=== PATIENT | male | born 1955 | race Caucasian/White ===

== ENCOUNTER → 2020-06-30 13:54 | Outpatient (CLI) | payer OTHER, SELFPAY ==
--- NOTE | ~2020-06-30 | CT_ITS ---
EXAMINATION: CT brain wo/w con EXAM DATE: 06/30/2020 14:38 INDICATION: Unspecified disorder of eye and adnexa, vascular abnormalities of left eye conjunctiva. TECHNIQUE: Spiral CT of the head was performed without contrast. Axial, coronal and sagittal images were reviewed. Patient was then injected with 100 cc Omnipaque 350 intravenous contrast and reimaged. Postcontrast axial, coronal, sagittal reformatted images reviewed. The dose-length product (DLP) f or this examination was 1199.14 mGy-cm. The exposure was tailored according to patient size, and ite rative reconstruction (ASIR) was used as additional dose reduction technique. There is no prior stud y for comparison. FINDINGS: The orbits are unremarkable, the retrobulbar fat is clear. 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 Given multicystic appearance can't exclude carcinoma. There is no acute intraparenchymal hemorrhage. No evidence of intraparenchymal brain mass lesion. N o evidence of acute infarction. There is no mass effect or midline shift. The ventricles are normal in size. There are no extra-axial collections. There are no acute calvarial fractures. The visua lized sinuses and mastoid air cells are well aerated. There are no areas of abnormal enhancement on the postcontrast images. IMPRESSION: 1. 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 Consider follow-up ENT consult. 2. Unremarkable orbits and brain. Reviewed, dictated and finalized at location B. UCT DEVELOPMENT COORDINATOR IMPRESSION: 1. 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 Consider follow-up ENT consult. 2. Unremarkable orbits and brain.
[2020-06-30 14:22] LABS: Estimated Glomerular Filt Rate > 60
== END ==
PROVIDERS: PCP Family Medicine; Visit Provider Specialist
DX: H11.412 Vascular abnormalities of conjunctiva, left eye (principal); H57.9 Unspecified disorder of eye and adnexa
CPT/HCPCS: 70470; Q9967

== ENCOUNTER 2020-09-19 07:44 | Outpatient (CLI) | payer OTHER, SELFPAY ==
--- NOTE | 2020-09-19 08:00 | ECG_ITS ---
Measurements Intervals [place] Rate: 49 P: 78 RI: 146 QRS: 52 QRSD: 100 T: 69 QT: 431 QTc: 391 Interpretive Statements SINUS BRADYCARDIA POSSIBLE LEFT ATRIAL ENLARGEMENT BORDERLINE R WAVE PROGRESSION, ANTERIOR LEADS BORDERLINE ST-T WAVE ABNORMALITY- I, II, AVR, V3-V4 ABNORMAL ECG Electronically Signed On 09-19-2020 8:13:28 CDT by Rafa Domínguez D.O.
== END 2020-09-19 07:45 | disposition home or self-care (01) ==
LOC: ANHSURGERY 07:47
PROVIDERS: PCP Family Medicine; Visit Provider Otolaryngology
DX: Z01.810 Encounter for preprocedural cardiovascular examination (principal); F17.200 Nicotine dependence, unspecified, uncomplicated; R94.31 Abnormal electrocardiogram [ECG] [EKG]
CPT/HCPCS: 93005

== ENCOUNTER → 2020-09-20 05:31 | Outpatient (CLI) | payer OTHER, SELFPAY ==
[2020-09-20 19:34] LABS: SARS-CoV-2 RNA PCR Negative
== END ==
PROVIDERS: PCP Family Medicine; Visit Provider Otolaryngology
DX: Z01.812 Encounter for preprocedural laboratory examination (principal); Z20.822 Contact with and (suspected) exposure to COVID-19
CPT/HCPCS: C9803; U0003; U0005

== ENCOUNTER 2020-09-23 00:55 | Day surgery (SDC) | payer OTHER, SELFPAY ==
[2020-09-09 11:54] VITALS: BMI 24.0
--- NOTE | 2020-09-22 06:58 | PM.HPGS ---
History of Present Illness History of Present Illness Consent: Risks, benefits, and alternatives have been discussed and questions answered. Patient agrees to proceed with procedure. Chief complaint: cyst of nasopharynx Narrative: Marshall Wells is a 65 year old mal with a 1.2 cm cyst in the nasopharynx that on x-rays consider Review of Systems Review of Systems: All systems reviewed & are unremarkable except as noted in HPI and below PMFSH Family History Family History (Updated 08/28/20 @ 08:28 by Lary De La Rosa) Father Diabetes mellitus Mother Cancer Sibling Thyroiditis Social History Social History Smoking packs per day: 1 Smoking cigarettes per day: 20.0 Years smoked: 40 Smoking pack-years: 40.00 Smoking status: Current every day smoker Tobacco type: cigarettes Alcohol intake: never Substance use: never Substance use type: does not use Spiritual care concerns: No Meds Home Medications and Allergies Home Medications Medication Instructions Recorded Confirmed Type gwnoaxmq-ajc-mpsjj acid 0.4 1 tablet PO DAILY 08/28/20 09/09/20 History mg-lycopene 300 mcg-lutein 250 mcg tablet Allergies Allergy/AdvReac Type Severity Reaction Status Date / Time aspirin Allergy Severe Difficulty Verified 09/09/20 11:54 Breathing propoxyphene [From Darvon] Allergy Severe Difficulty Verified 09/09/20 11:54 Breathing Exam Narrative: Exam Narrative: chest clear heart without murmurs abdomen soft extremities negative 1.2 cm cyst in the nasophary Assessment and Plan Additional Plan plan is a biopsy of the cyst in the nasopharynx
--- NOTE | 2020-09-23 06:22 | WPDHPUPDATE1 ---
History and Physical Update Update Date/Time: 09/23/20 06:22 History and Physical has been reviewed, including an updated exam of the patient. There are NO changes in the patient's condition. Risks, benefits, and alternatives have been discussed and questions answered. Patient agrees to proceed with procedure.
[2020-09-23] MEDS: LACTATED RINGERS 1,000 ML 30 ML IV CONT ×2 (06:55→08:18)
[2020-09-23 07:05] VITALS: BP 128/62; PULSE 56; RESP 20; TEMP 36.6; O2SAT 99
--- NOTE | 2020-09-23 07:34 | WPDANESEPPF ---
Anes - Initial Pre Proc Eval Procedure: Operation Date: 09/23/20 08:45 Proposed Procedures p Biopsy Cyst of Nasopharynx - Antwon Fernandez MD Date/Time: 09/23/20 07:34 Surgeon: Antwon Fernandez MD Pre Op Diagnosis: cyst of nasopharynx Patient Data Age: 65 Gender: M Height: 5 ft 10 in Weight: 76 kg Last Vital Signs Temp 97.8 F 09/23/20 07:05 Pulse 56 L 09/23/20 07:05 Resp 20 09/23/20 07:05 BP 128/62 09/23/20 07:05 Pulse Ox 99 09/23/20 07:05 Allergies Allergy/AdvReac Type Severity Reaction Status Date / Time aspirin Allergy Severe Difficulty Verified 09/23/20 07:04 Breathing propoxyphene [From Darvon] Allergy Severe Difficulty Verified 09/23/20 07:04 Breathing Home Medications Medication Instructions Recorded Confirmed Type ugfrgfji-nxi-rdxuf acid 0.4 1 tablet PO DAILY 08/28/20 09/23/20 History mg-lycopene 300 mcg-lutein 250 mcg tablet Patient hx anesthesia problems: none Family hx anesthesia problems: none PMFSH Past Medical History Medical History (Updated 09/23/20 @ 07:31 by Fer Nina MD) Graves disease H/O malignant neoplasm of rectum Family History Family History (Updated 08/28/20 @ 08:28 by Lary De La Rosa) Father Diabetes mellitus Mother Cancer Sibling Thyroiditis Social History Social History Smoking packs per day: 1 Smoking cigarettes per day: 20.0 Years smoked: 40 Smoking pack-years: 40.00 Smoking status: Current every day smoker Tobacco type: cigarettes Alcohol intake: never Substance use: never Substance use type: does not use Living arrangements: with family Spiritual care concerns: No Anes - Eval Final PreProcedure Day of Procedure 09/23/20 07:34 Patient weight: normal Heart: regular rate and rhythm Lungs: clear to auscultation Airway: Mallampati scale class II Neurological: alert and oriented Last oral intake: >/= 8 hours ASA classification: III Emergent: no Anesthetic plan: proceed Anesthesia type and monitoring: general ETT and standard monitoring Informed Consent: The patient's anesthetic plan and its attendant risks and benefits were discussed with the patient/family/POA. Questions were solicited and answers provided to the satisfaction of the patient/family/POA.
[2020-09-23] MEDS: OXYMETAZOLINE HCL 0.05% NAS 15 ML BTL (*BKC) 1 SPRAY NASAL (08:01)
--- NOTE | 2020-09-23 08:08 | PM.PROC ---
Procedure Note - Detailed Date of procedure: 09/23/20 Pre-op diagnosis: cyst of nasopharynx Post-op diagnosis: same Procedure performed: Biopsy multiple areas of nasopharynx Description of procedure: Patient was prepped and draped fashion general anesthesia with the tonsil set up there nasopharynx was inspected palpated some soft areas were multiple we biopsied left and Center Anesthesia: GLMA Surgeon: Antwon Fernandez MD Estimated blood loss (mL): 10 Drains: No Packing: No Pathology: none sent Complications: No immediate complications Condition: stable Disposition: PACU Findings: Cyst nasopharynx
[2020-09-23 08:10] VITALS: BP 163/74; PULSE 62; RESP 18; TEMP 36.4; O2SAT 100
[2020-09-23 08:30] VITALS: BP 147/69; PULSE 53; RESP 16; O2SAT 100
[2020-09-23 08:45] VITALS: BP 143/71; PULSE 51; RESP 14; O2SAT 99
[2020-09-23 08:48] VITALS: BP 151/72; PULSE 47; RESP 14
[2020-09-23 09:15] VITALS: BP 155/67; PULSE 50; RESP 14
== END 2020-09-23 09:27 | disposition home or self-care (01) ==
PROVIDERS: PCP Family Medicine; Visit Provider Otolaryngology
PROC: (CPT 42804; principal; 2020-09-23 08:45)
DX: J39.2 Other diseases of pharynx (principal); F17.210 Nicotine dependence, cigarettes, uncomplicated
CPT/HCPCS: 42804; 88305; 93005; A9270; C9803; J0330; J1100; J2250; J2405; J2704; J7120; U0003; U0005

== ENCOUNTER 2024-03-26 16:11 | Emergency (ER) | payer OTHER, MEDICARE, SELFPAY ==
[2024-03-26] VITALS (9 sets, daily range): BP systolic 102–168; BP diastolic 58–86; PULSE 59–68; RESP 12–19; TEMP 36.3–36.6; O2SAT 99–100
--- NOTE | ~2024-03-26 | XR_ITS ---
CHEST RADIOGRAPH, PA AND LATERAL CLINICAL HISTORY: near syncope . COMPARISON: None available TECHNIQUE: PA and lateral views of the chest. FINDINGS The left mid to upper lung is partially obscured due to pacemaker generator. Wires project over the right atrium and right ventricle. The remainder of the cardiomediastinal silhouette is otherwise unremarkable. Panlobular emphysematous change. The lungs are otherwise clear. Visualized osseous structures and soft tissues are unremarkable. IMPRESSION: Panlobular emphysematous change, without focal infiltrate or effusion. Reviewed, dictated and finalized at location A.
--- NOTE | ~2024-03-26 | CT_ITS ---
EXAMINATION: CT brain wo con DATE: 03/26/2024 16:45 INDICATION: Near syncope. TECHNIQUE: Computed tomography (CT) of the head was performed without intravenous contrast. The mA wa s adjusted according to patient size. Iterative reconstruction technique was employed. The dose-lengt h product was 605.33 mGy-cm. COMPARISON: Head CT 06/30/2020 FINDINGS: There is no intracranial hemorrhage, acute infarction, or abnormal intracranial mass lesion . There is a small old infarct in the left parietal deep white matter. The ventricles are normal in s ize. The paranasal sinuses are clear. There is a trace left mastoid effusion. IMPRESSION: 1. 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 Reviewed, dictated and finalized at location A.
--- NOTE | 2024-03-26 16:17 | ED.DIZZY ---
HPI - Dizziness General Chief Complaint: Dizziness <RATNA Jaramillo Last Filed: 03/26/24 19:07> Stated Complaint: lightheaded, shaky <RATNA Jaramillo Last Filed: 03/26/24 19:07> Time Seen by Provider: 03/26/24 16:12 <RATNA Jaramillo Last Filed: 03/26/24 19:07> Focused HPI: Patient is a 68 y/o male, with PMH of pacemaker, who presents to the ED with c/o lightheadedness. Patient reports he was driving home from work today when he began feeling lightheaded, shaky, began having blurred vision. Denies LOC. He also began to have some indigestion, which prompted him to come to the ED. He does feel improved currently. He states these sx's felt similar to what he experienced before receiving his pacemaker. Patient sees Dr. Shi with Cardiology in [facility]. Denies SOB. He is a smoker. Denies diaphoresis, nausea, recent cough or cold sx's. GENERAL: Appears older than stated age, well-nourished, and in no acute distress. HEAD: Normocephalic, atraumatic. CHEST: Clear to auscultation. ?No respiratory distress. HEART: Regular rate and rhythm.? NEURO: ?Alert and oriented x3. Patient screened in triage and initial orders placed.? ?Additional care and disposition to be based upon?diagnostic testing and treatment. <RATNA Jaramillo Last Filed: 03/26/24 19:07> Source: patient <RATNA Jaramillo Last Filed: 03/26/24 19:07> Mode of arrival: ambulatory <RATNA Jaramillo Last Filed: 03/26/24 19:07> Limitations: no limitations <RATNA Jaramillo Last Filed: 03/26/24 19:07> History of Present Illness HPI Narrative: patient 68-year-old gentleman presents emergency department chief complaint of lightheadedness. The patient reports he was driving home felt lightheaded had felt so he had some blurry vision and felt shaky. The patient reports symptoms lasted for about 30 seconds the patient states that currently he is asymptomatic. <Jhonathan Ortiz MD - Last Filed: 03/27/24 00:20> Related Data Home Medications: Home Medications Medication Instructions Recorded Confirmed cfvzevac-bbp-itsfe acid 0.4 1 tablet PO DAILY 08/28/20 03/26/24 mg-lycopene 300 mcg-lutein 250 mcg tablet (Centrum Silver) <Carol Lester PA-C - Last Filed: 03/26/24 19:07> Allergies/Adverse Reactions: Allergies Allergy/AdvReac Type Severity Reaction Status Date / Time aspirin Allergy Severe Difficulty Verified 09/23/20 07:04 Breathing ibuprofen Allergy Severe Difficulty Verified 03/26/24 22:37 Breathing propoxyphene [From Darvon] Allergy Severe Difficulty Verified 09/23/20 07:04 Breathing <Carol Lester PA-C - Last Filed: 03/26/24 19:07> Review of Systems Review of Systems: A 10 system review of systems was completed on the patient and is negative except for what is stated in the HPI. Nursing and ancillary documentation was reviewed. <Jhonathan Ortiz MD - Last Filed: 03/27/24 00:20> [facility] Past Medical History Medical History: Medical History Graves disease H/O malignant neoplasm of rectum <Carol Lester PA-C - Last Filed: 03/26/24 19:07> Family History Family History: Family History Father Diabetes mellitus Mother Cancer Sibling Thyroiditis <Carol Lester PA-C - Last Filed: 03/26/24 19:07> Social History Social History: Social History Smoking packs per day: 1 Smoking cigarettes per day: 20.0 Years smoked: 40 Smoking pack-years: 40.00 Smoking status: Current every day smoker Tobacco type: cigarettes Alcohol intake: never Substance use: never Substance use type: does not use Living arrangements: with family
--- NOTE | 2024-03-26 16:18 | ECG_ITS ---
Test Date: 2024-03-26 16:20:25 Measurements Intervals [place] Rate: 65 P: 115 CO: 159 QRS: 67 QRSD: 98 T: 77 QT: 388 QTc: 406 Interpretive Statements ELECTRONIC ATRIAL PACEMAKER NONSPECIFIC T-WAVE ABNORMALITY ABNORMAL RHYTHM ECG No previous ECG available for comparison Electronically Signed On 03-27-2024 07:23:13 CDT by Wale Conroy M.D.
[2024-03-26 16:45] LABS: Basophils Absolute Auto 0.1 K/mm3 (0.0-0.1); Basophils Percent Auto 0.6 % (0.2-1.2); Eosinophils Absolute Auto 0.1 K/mm3 (0-0.3); Eosinophils Percent Auto 1.8 % (0-4.4); Hematocrit 38.7 % (42.0-52.0); Hemoglobin 13.2 g/dL (14.0-18.0); Immature Granulocyte Absolute 0.03 K/mm3 (0.00-0.031); Immature Granulocyte Percent A 0.4 % (0-0.5); Lymphocytes Absolute Auto 0.91 K/mm3 (0.9-3.2); Lymphocytes Percent Auto 11.8 % (18.3-44.2); Mean Corpuscular HGB Conc 34.1 g/dl (32-36); Mean Corpuscular Hemoglobin 31.1 pg (26-34); Mean Corpuscular Volume 91.3 fl (80-100); Mean Platelet Volume 8.7 fl (7.4-10.4); Monocytes Absolute Auto 0.4 K/mm3 (0.1-0.6); Monocytes Percent Auto 5.2 % (2.6-8.5); Neutrophils Absolute Auto 6.2 K/mm3 (1.3-6.7); Neutrophils Percent Auto 80.2 % (45.5-73.1); Platelet Count Result 183 k/mm3 (150-375); Red Blood Count 4.24 M/mm3 (4.6-6.20); Red Cell Distribution Width 13.2 % (11.5-14.5); White Blood Count 7.7 K/mm3 (4.5-10.0)
[2024-03-26 16:47] LABS: Prothrombin Time 13.8 Seconds (11.1-14.7)
[2024-03-26 16:48] LABS: Partial Thromboplastin Time 33.9 Seconds (22.3-36.8)
[2024-03-26 17:05] LABS: Alanine Aminotransferase 11 U/L (6-50); Albumin Level 4.1 g/dL (3.5-5.1); Alkaline Phosphatase 116 U/L (38-126); Anion Gap 8 mmol/L (4-12); Aspartate Amino Transferase 21 U/L (17-59); Bilirubin,Total 0.5 mg/dL (0.2-1.3); Blood Urea Nitrogen 18 mg/dL (9-20); Calcium 8.6 mg/dL (8.4-10.2); Carbon Dioxide 25 mmol/L (22-30); Chloride 100 mmol/L (98-107); Estimated CRCL calculation 60 ml/min; Estimated Glomerular Filt Rate > 60; Glucose 103 mg/dL (65-110); Magnesium 1.9 mg/dL (1.6-2.3); Potassium 3.7 mmol/L (3.4-5.0); Sodium 133 mmol/L (137-145)
[2024-03-26 17:16] LABS: Troponin I < 0.012 ng/mL (0.000-0.034)
[2024-03-26 17:35] LABS: Thyroid Stimulating Hormone 0.239 uIU/mL (0.465-4.680)
[2024-03-26 21:01] LABS: Add Urine Microscopic? NO; Appearance Urine Clear (Clear); Bilirubin Urine Negative (Negative); Blood Urine Negative (Negative); Color Urine Yellow (Yellow); Glucose Urine UA Negative (Negative); Ketones Urine Negative (Negative); Leukocyte Esterase Ur Negative LEU/UL (Negative); Nitrate Urine Negative (Negative); Protein Urine Negative (Negative); Specific Grav Ur 1.005 (1.001-1.035); Urobilinogen Urine 0.2 mg/dL (<2.0)
[2024-03-26] MEDS: SODIUM CHLORIDE 0.9% IV 1,000 ML 999 ML IV CONT (21:21)
[2024-03-27] MEDS: SODIUM CHLORIDE 0.9% IV 1,000 ML 999 ML IV CONT (00:03)
== END 2024-03-27 00:58 | disposition home or self-care (01) ==
PROVIDERS: Physician Assistant; Emergency Provider Emergency Medicine; PCP Family Medicine
DX: I95.1 Orthostatic hypotension (principal); E05.00 Thyrotoxicosis with diffuse goiter without thyrotoxic crisis or storm; F17.210 Nicotine dependence, cigarettes, uncomplicated; Z85.048 Personal history of other malignant neoplasm of rectum, rectosigmoid junction, and anus
CPT/HCPCS: 36415; 70450; 71046; 80053; 81003; 83735; 84443; 84484; 85025; 85610; 85730; 93005; 96360; 96361; 99284; J7030